=== PATIENT | male | born 1990 | race American Indian/Alaskan Native ===

== ENCOUNTER 2017-04-25 15:43 | Emergency (ER) | payer MEDICAID ==
[2017-04-25 16:06] VITALS: BP 131/50; PULSE 66; RESP 20; TEMP 98; O2SAT 100
[2017-04-25] MEDS ORDERED: Alum-Mag Hydrox-Simethicone Susp (30 mL) PO STA (17:50)
[2017-04-25] MEDS ORDERED: Alum-Mag Hydrox-Simethicone Susp (30 mL) ONE (17:57)
--- NOTE | 2017-04-25 18:04 | ED PDOC ---
HPI: Abdomen Time Seen by Provider: 04/25/17 17:30 Chief Complaint (Nursing): Abdominal Pain Chief Complaint (Provider): Abdominal Pain History Per: Patient History/Exam Limitations: no limitations Onset/Duration Of Symptoms: Days (x 1 year), Intermittent Episodes Current Symptoms Are (Timing): Still Present Additional Complaint(s): 27 year old male who presents to the ED complaining of abdominal pain, onset 1 year. He reports the last 2 weeks the pain has been worsening. Patient reports the pain is burning in his epigastric region and radiates to left upper quadrant of his abdomen. He has taken Pepto Bismol intermittently with minimal relief. The pain is intermittent and is sometimes associated with non-bilious non bloody vomiting. The timing of the vomiting varies, sometimes it is first thing in the morning and other times it is right after he eats. Vomiting occurs once or twice every couple of weeks. He came to the ED today because the pain was so bad that he had to call out of work. Patient denies fever, diarrhea and weight loss. PMD: none Past Medical History Reviewed: Historical Data, Nursing Documentation, Vital Signs Vital Signs: Last Vital Signs Temp 98 F 04/25/17 16:02 Pulse 66 04/25/17 16:02 Resp 20 04/25/17 16:02 BP 131/50 L 04/25/17 16:02 Pulse Ox 100 04/25/17 19:38 - Medical History PMH: Asthma (child) - Surgical History Other surgeries: Jaw fracture repair - Family History Family History: States: Other Other Family History: Gastritis - Social History Current smoker - smoking cessation education provided: Yes Alcohol: Social Drugs: Cannabis - Home Medications Home Medications: Ambulatory Orders Medication Instructions Recorded Dicyclomine [Bentyl] 20 mg PO BID PRN #30 tab 04/25/17 Omeprazole Magnesium [Prilosec Otc] 20 mg PO DAILY #30 tcp 04/25/17 Ondansetron ODT [Zofran ODT] 1 odt PO Q6 PRN #20 odt 04/25/17 - Allergies Allergies/Adverse Reactions: Allergies Allergy/AdvReac Type Severity Reaction Status Date / Time No Known Allergies Allergy Verified 04/25/17 16:02 Review of Systems ROS Statement: Except As Marked, All Systems Reviewed And Found Negative (as per HPI) Constitutional: Negative for: Fever, Weight loss Cardiovascular: Positive for: Chest Pain Gastrointestinal: Positive for: Vomiting (intermittent; non-bilious, non-bloody) . Negative for: Diarrhea Physical Exam - Reviewed Nursing Documentation Reviewed: Yes Vital Signs Reviewed: Yes - Physical Exam Appears: Positive for: Non-toxic, No Acute Distress Head Exam: Positive for: ATRAUMATIC, NORMOCEPHALIC Skin: Positive for: Warm, Dry Eye Exam: Positive for: EOMI, PERRL ENT: Negative for: Pharyngeal Erythema, Tonsillar Exudate Neck: Positive for: Painless ROM, Supple Cardiovascular/Chest: Positive for: Regular Rate, Rhythm, Chest Non Tender Respiratory: Positive for: Normal Breath Sounds. Negative for: Wheezing Gastrointestinal/Abdominal: Positive for: Bowel Sounds, Soft. Negative for: Tenderness, Mass, Distended, Guarding, Rebound Back: Positive for: Normal Inspection. Negative for: Decreased ROM Extremity: Positive for: Normal ROM. Negative for: Deformity Lymphatic: Negative for: Adenopathy Neurologic/Psych: Positive for: Alert. Negative for: Motor/Sensory Deficits - Laboratory Results Result Diagrams: 04/25/17 18:26 04/25/17 18:26 - ECG O2 Sat by Pulse Oximetry: 100 (RA) Pulse Ox Interpretation: Normal Medical Decision Making Medical Decision Making: Time: 17:54 Impression: abdominal pain Differential diagnoses include but are not limited to Gastritis, peptic ulcer disease, pancreatitis and hepatitis Initial Plan: --CMP --Lipase --CBC with differentials --Partial Thromboplastin Time --Prothrombin Time --Lidocaine 2% 10 ml PO --Maalox Plus 30 ml --Pepcid 40 mg PO Time: 19:27 --Patient tolerated PO food well. Reports that he feels better. Labs show no abnormalities. Patient is eager to go home. Scribe Attestation: Documented by Clarisse Dominguez, acting as a scribe for Maia Ang MD Provider Scribe Attestation: All medical record entries made by the Scribe were at my direction and personally dictated by me. I have reviewed the chart and agree that the record accurately reflects my personal performance of the history, physical exam, medical decision making, and the department course for this patient. I have also personally directed, reviewed, and agree with the discharge instructions and disposition Disposition - Clinical Impression Clinical Impression: Abdominal pain - Disposition Referrals: [facility] [Outside] Disposition: Routine/Home Disposition Time: 19:22 Condition: GOOD Additional Instructions: TAKE PRILOSEC EVERY DAY TAKE ZOFRAN NEEDED FOR NAUSEA AND BENTYL NEEDED FOR PAIN FOLLOW UP WITH CLINIC IN 1-2 WEEKS Prescriptions: Dicyclomine [Bentyl] 20 mg PO BID PRN #30 tab PRN Reason: abdominal pain Omeprazole Magnesium [Prilosec Otc] 20 mg PO DAILY #30 tcp Ondansetron ODT [Zofran ODT] 1 odt PO Q6 PRN #20 odt PRN Reason: Nausea/Vomiting Instructions: Epigastric Pain (ED) Forms: [facility] ED School/Work Excuse
[2017-04-25 18:40] LABS: BASO % 0.4 % (0.0-2.0); EOS # 0.2 K/uL (0.0-0.7); EOS % 2.6 % (0.0-4.0); HEMOGLOBIN 13.7 g/dL (12.0-18.0); LYMPH # 2.1 K/uL (1.0-4.3); LYMPH % 23.3 % (20.0-40.0); MEAN CELL VOLUME 94.8 fl (80.0-94.0); MEAN CORPUSCULAR HEMOGLOBIN 30.7 pg (27.0-31.0); MEAN CORPUSCULAR HGB CONC 32.4 g/dL (33.0-37.0); MEAN PLATELET VOLUME 8.7 fl (7.2-11.7); MONO # 0.7 K/uL (0.0-0.8); MONO % 7.2 % (0.0-10.0); NEUT % 66.5 % (50.0-75.0); RBC 4.46 Mil/uL (4.40-5.90)
[2017-04-25 18:58] LABS: ALB/GLOB RATIO 1.4 (1.0-2.1); ALBUMIN 4.5 g/dL (3.5-5.0); ALT/SGPT 48 U/L (21-72); AST/SGOT 36 U/L (17-59); BLOOD UREA NITROGEN 14 mg/dl (9-20); CALCIUM 9.6 mg/dL (8.4-10.2); GFR AFRICAN-AMERICAN > 60; GFR NON-AFRICAN AMERICAN > 60; LIPASE 76 U/L (23-300)
[2017-04-25 19:33] LABS: INR 1.1 (0.9-1.2); PARTIAL THROMBOPLASTIN TIME 30.9 Seconds (25.6-37.1); PROTHROMBIN TIME 12.7 Seconds (9.8-13.1)
== END 2017-04-25 19:40 | disposition home or self-care (01) ==
LOC: H.ER 15:43
DX: R10.9 Unspecified abdominal pain (principal); J45.909 Unspecified asthma, uncomplicated

== ENCOUNTER 2017-05-21 18:14 | Emergency (ER) | payer MEDICAID ==
[2017-05-21 18:22] VITALS: BP 127/77; PULSE 91; RESP 20; TEMP 98.5; O2SAT 99
--- NOTE | 2017-05-21 18:47 | ED PDOC ---
HPI: Headache Time Seen by Provider: 05/21/17 18:36 Chief Complaint (Nursing): Headache Chief Complaint (Provider): Headache History Per: Patient History/Exam Limitations: no limitations Onset/Duration Of Symptoms: Days (x2 days) Current Symptoms Are (Timing): Still Present Additional Complaint(s): 27 year old male presents to the emergency department with a complaint of a left -sided headache and nasal pain x2 days. Describes the pain as sharp. Reports taking DayQuil without relief. Denies fever or chills. Past Medical History Reviewed: Historical Data, Nursing Documentation, Vital Signs Vital Signs: Last Vital Signs Temp 98.5 F 05/21/17 18:20 Pulse 91 H 05/21/17 18:20 Resp 20 05/21/17 18:20 BP 127/77 05/21/17 18:20 Pulse Ox 99 05/21/17 18:20 - Medical History PMH: Asthma (child) - Surgical History Surgical History: No Surg Hx - Family History Family History: States: Unknown Family Hx - Social History Current smoker - smoking cessation education provided: No Alcohol: None Drugs: Denies - Home Medications Home Medications: Ambulatory Orders Medication Instructions Recorded Dicyclomine [Bentyl] 20 mg PO BID PRN #30 tab 04/25/17 Omeprazole Magnesium [Prilosec Otc] 20 mg PO DAILY #30 tcp 04/25/17 Ondansetron ODT [Zofran ODT] 1 odt PO Q6 PRN #20 odt 04/25/17 Guaifen/Phenyleph/Acetaminophn 1 tab PO BID #14 tab 05/21/17 [Mucinex Fast-Max Cold & Sinus 325 mg-200 mg-5] - Allergies Allergies/Adverse Reactions: Allergies Allergy/AdvReac Type Severity Reaction Status Date / Time No Known Allergies Allergy Verified 04/25/17 16:02 Review of Systems ROS Statement: Except As Marked, All Systems Reviewed And Found Negative (As per HPI, otherwise negative) Constitutional: Negative for: Fever, Chills ENT: Positive for: Nose Pain (Nasal area) Neurological: Positive for: Headache (Left-sided) Physical Exam - Reviewed Nursing Documentation Reviewed: Yes Vital Signs Reviewed: Yes - Physical Exam Appears: Positive for: Non-toxic, No Acute Distress Head Exam: Positive for: ATRAUMATIC, NORMAL INSPECTION, NORMOCEPHALIC Skin: Positive for: Normal Color, Warm, Dry ENT: Positive for: Normal ENT Inspection, Pharynx Is (Clear), TM Is/Are (Clear) . Negative for: Pharyngeal Erythema Cardiovascular/Chest: Positive for: Regular Rate, Rhythm. Negative for: Murmur Respiratory: Positive for: Normal Breath Sounds. Negative for: Decreased Breath Sounds, Accessory Muscle Use, Respiratory Distress Neurologic/Psych: Positive for: Alert, Oriented (x3), Cerebellar Tests (Normal) , Gait (Steady). Negative for: Facial Droop - ECG O2 Sat by Pulse Oximetry: 99 (RA) Pulse Ox Interpretation: Normal Medical Decision Making Medical Decision Making: Time: 1844 Initial impression: Sinusitis Initial plan: --Evaluation Time: 1849 Upon evaluation patient is medically stable, and requires no treatment in the ED at this time. Patient will be discharged home with Rx for Mucinex Fast-Max Cold & Sinus 325 mg. Counseling was provided and all questions were answered regarding diagnosis and need for follow up with primary care doctor. There is agreement to discharge plan. Return if symptoms persist or worsen. Clinical Impression: Sinus Pressure Scribe Attestation: Documented by Leonila Liu, acting as a scribe for Vanessa Espinal PA-C Provider Scribe Attestation: All medical record entries made by the Scribe were at my direction and personally dictated by me. I have reviewed the chart and agree that the record accurately reflects my personal performance of the history, physical exam, medical decision making, and the department course for this patient. I have also personally directed, reviewed, and agree with the discharge instructions and disposition. Disposition - Clinical Impression Clinical Impression: Sinus pressure - Patient ED Disposition Is Patient to be Admitted: No Counseled Patient/Family Regarding: Diagnosis, Need For Followup, Rx Given - Disposition Disposition: Routine/Home Disposition Time: 18:50 Condition: STABLE Prescriptions: Guaifen/Phenyleph/Acetaminophn [Mucinex Fast-Max Cold & Sinus 325 mg-200 mg-5] 1 tab PO BID #14 tab Instructions: Rhinosinusitis (ED) Forms: [employer] (Persian), [facility] ED School/Work Excuse
== END 2017-05-21 18:53 | disposition home or self-care (01) ==
LOC: H.ER 18:14
DX: J32.9 Chronic sinusitis, unspecified (principal); J45.909 Unspecified asthma, uncomplicated

== ENCOUNTER 2017-05-27 10:51 | Emergency (ER) | payer MEDICAID ==
[2017-05-27 10:55] VITALS: BP 132/84; PULSE 80; TEMP 97; O2SAT 100; BMI 23.3
--- NOTE | 2017-05-27 13:37 | ED PDOC ---
Lower Extremity Pain/Injury Time Seen by Provider: 05/27/17 11:14 Chief Complaint (Nursing): Lower Extremity Problem/Injury Chief Complaint (Provider): Intermittent left knee pain, worse today History Per: Patient History/Exam Limitations: no limitations Onset/Duration Of Symptoms: Days Current Symptoms Are (Timing): Still Present Severity: Moderate Pain Scale Rating Of: 7 Additional Complaint(s): PT states being unsteady in the snow yesterday made the pain worse. PT has not taken anything for the pain,. Pt has not see a provider regarding knee pain. Pt reports feeling like somethign is stuck in his knee when he tries to bend it. Past Medical History Reviewed: Historical Data, Nursing Documentation, Vital Signs Vital Signs: Last Vital Signs Temp 97 F L 05/27/17 10:54 Pulse 80 05/27/17 10:54 Resp BP 132/84 05/27/17 10:54 Pulse Ox 100 05/27/17 10:54 - Medical History PMH: Asthma (child) - Surgical History Surgical History: No Surg Hx - Family History Family History: States: Unknown Family Hx - Living Arrangements Living Arrangements: With Family - Social History Current smoker - smoking cessation education provided: No - Home Medications Home Medications: Ambulatory Orders Medication Instructions Recorded Dicyclomine [Bentyl] 20 mg PO BID PRN #30 tab 04/25/17 Omeprazole Magnesium [Prilosec Otc] 20 mg PO DAILY #30 tcp 04/25/17 Ondansetron ODT [Zofran ODT] 1 odt PO Q6 PRN #20 odt 04/25/17 Guaifen/Phenyleph/Acetaminophn 1 tab PO BID #14 tab 05/21/17 [Mucinex Fast-Max Cold & Sinus 325 mg-200 mg-5] Ibuprofen [Motrin Tab] 800 mg PO Q6H PRN #20 tab 05/27/17 - Allergies Allergies/Adverse Reactions: Allergies Allergy/AdvReac Type Severity Reaction Status Date / Time No Known Allergies Allergy Verified 04/25/17 16:02 Review of Systems ROS Statement: Except As Marked, All Systems Reviewed And Found Negative Musculoskeletal: Positive for: Leg Pain Physical Exam - Reviewed Nursing Documentation Reviewed: Yes Vital Signs Reviewed: Yes - Physical Exam Appears: Positive for: Well, Non-toxic, No Acute Distress Head Exam: Positive for: ATRAUMATIC, NORMAL INSPECTION, NORMOCEPHALIC Skin: Positive for: Normal Color, Warm, DRY Eye Exam: Positive for: Normal appearance ENT: Positive for: Normal ENT Inspection Neck: Positive for: Normal, Painless ROM Respiratory: Negative for: Accessory Muscle Use, Respiratory Distress Pulses-Dorsalis Pedis (L): 2+ Pulses-Dorsalis Pedis (R): 2+ Pulses-Post. Tibialis (L): 2+ Pulses-Post. Tibialis (R): 2+ Back: Positive for: Normal Inspection Extremity: Positive for: Other ((-) anterior/posterior drawer, (-) McMurrys ). Negative for: Normal ROM (Decreased left knee flexion due to pain), Tenderness, Deformity, Swelling Neurologic/Psych: Positive for: Alert, Oriented - ECG O2 Sat by Pulse Oximetry: 100 Medical Decision Making Medical Decision Making: x-ray without acute findings Disposition - Clinical Impression Clinical Impression: Knee pain - Patient ED Disposition Is Patient to be Admitted: No Counseled Patient/Family Regarding: Diagnosis, Need For Followup, Rx Given - Disposition Referrals: Otoniel Smith MD [Staff Provider] - Disposition: Routine/Home Disposition Time: 13:32 Condition: GOOD Prescriptions: Ibuprofen [Motrin Tab] 800 mg PO Q6H PRN #20 tab PRN Reason: Pain Instructions: Knee Pain (ED) Forms: [employer] (Khmer), [facility] ED School/Work Excuse
--- NOTE | 2017-05-27 14:11 | RAD ---
PROCEDURE: Left Knee Radiographs. HISTORY: Pain. COMPARISON: Left knee radiographs 09/29/2013. FINDINGS: BONES: No acute fracture or destructive bony lesion identified. JOINTS: Normal. No osteoarthritis. JOINT EFFUSION: None. OTHER FINDINGS: None. IMPRESSION: Normal radiographs of the left knee. No significant interval change appreciated. Consider follow-up MRI if symptoms persist or worsen or as otherwise may be indicated.
== END 2017-05-27 13:45 | disposition home or self-care (01) ==
LOC: H.ER 10:51
DX: M25.562 Pain in left knee (principal); J45.909 Unspecified asthma, uncomplicated

== ENCOUNTER 2018-08-04 18:01 | Emergency (ER) | payer MEDICAID ==
[2018-08-04 18:01] VITALS: BMI 23.3
[2018-08-04 18:10] VITALS: RESP 18
--- NOTE | 2018-08-04 19:27 | ED PDOC ---
HPI: Abdomen Time Seen by Provider: 08/04/18 18:19 Chief Complaint (Nursing): Abdominal Pain Chief Complaint (Provider): Abdominal Pain History Per: Patient History/Exam Limitations: no limitations Onset/Duration Of Symptoms: Days (x2) Current Symptoms Are (Timing): Still Present Additional Complaint(s): 28 y/o male with no significant PMHx presents to the ED for evaluation of abdominal pain, onset two days ago. Patient states that for the past two days, he has been experiencing diffuse abdominal pain associated with urinary hesitancy and constipation. Patient reports his last bowel movement was earlier today. Patient describes bowel movement as very hard and small. Otherwise, patient denies nausea, vomiting, diarrhea, penile discharge, dysuria, back pain, fever, chills and previous abdominal surgeries. PMD: none provided Past Medical History Reviewed: Historical Data, Nursing Documentation, Vital Signs Vital Signs: Last Vital Signs Temp 98.4 F 08/04/18 18:06 Pulse 68 08/04/18 18:06 Resp 18 08/04/18 18:06 BP 131/77 08/04/18 18:06 Pulse Ox 97 08/04/18 18:06 - Medical History PMH: Asthma (child) - Surgical History Surgical History: No Surg Hx - Family History Family History: States: Unknown Family Hx - Home Medications Home Medications: Ambulatory Orders Medication Instructions Recorded Dicyclomine [Bentyl] 20 mg PO BID PRN #30 tab 04/25/17 Omeprazole Magnesium [Prilosec Otc] 20 mg PO DAILY #30 tcp 04/25/17 Ondansetron ODT [Zofran ODT] 1 odt PO Q6 PRN #20 odt 04/25/17 Guaifen/Phenyleph/Acetaminophn 1 tab PO BID #14 tab 05/21/17 [Mucinex Fast-Max Cold & Sinus 325 mg-200 mg-5] Ibuprofen [Motrin Tab] 800 mg PO Q6H PRN #20 tab 05/27/17 - Allergies Allergies/Adverse Reactions: Allergies Allergy/AdvReac Type Severity Reaction Status Date / Time No Known Allergies Allergy Verified 08/04/18 18:05 Review of Systems ROS Statement: Except As Marked, All Systems Reviewed And Found Negative Constitutional: Negative for: Fever, Chills Gastrointestinal: Positive for: Abdominal Pain. Negative for: Nausea, Vomiting, Diarrhea, Constipation Genitourinary Male: Positive for: Other (urinary hesitancy). Negative for: Dysuria, Penile Discharge Musculoskeletal: Negative for: Back Pain Physical Exam - Reviewed Nursing Documentation Reviewed: Yes Vital Signs Reviewed: Yes - Physical Exam Appears: Positive for: No Acute Distress Skin: Positive for: Normal Color Eye Exam: Positive for: Normal appearance Neck: Positive for: Normal Cardiovascular/Chest: Positive for: Regular Rate, Rhythm. Negative for: Murmur Respiratory: Positive for: Normal Breath Sounds. Negative for: Respiratory Distress Gastrointestinal/Abdominal: Positive for: Normal Exam, Bowel Sounds, Soft. Negative for: Tenderness, Distended Back: Positive for: Normal Inspection. Negative for: L CVA Tenderness, R CVA Tenderness Extremity: Positive for: Normal ROM. Negative for: Deformity Neurological/Psych: Positive for: Awake, Alert, Oriented (x3) - ECG O2 Sat by Pulse Oximetry: 97 (RA) Pulse Ox Interpretation: Normal Medical Decision Making Medical Decision Making: Time: 1829 Impression: Abdominal Pain Plan: -- CMP -- Lipase -- CBC with Differentials -- Obstructive Series -- IV Insertion -- Urinalysis Scribe Attestation: Documented by Radha Noel, acting as a scribe Luis Tim PA-C. Provider Scribe Attestation: All medical record entries made by the Scribe were at my direction and personally dictated by me. I have reviewed the chart and agree that the record accurately reflects my personal performance of the history, physical exam, medical decision making, and the department course for this patient. I have also personally directed, reviewed, and agree with the discharge instructions and disposition. Disposition - Clinical Impression Clinical Impression: Abdominal pain - Patient ED Disposition Is Patient to be Admitted: Transfer of Care (Signed out to Kulwinder SELF pending lab results and re-evaluation.) - Disposition Disposition Time: 20:02 Condition: FAIR Forms: [employer] (Swedish)
[2018-08-04 20:10] LABS: URINE BILIRUBIN NEGATIVE (NEGATIVE); URINE BLOOD NEGATIVE (NEGATIVE); URINE CLARITY CLEAR (Clear); URINE COLOR YELLOW (YELLOW); URINE GLUCOSE (UA) NEG (NEGATIVE); URINE LEUKOCYTE ESTERASE NEG Leu/uL (Negative); URINE PROTEIN NEGATIVE (NEGATIVE); URINE UROBILINOGEN 0.2-1.0 mg/dL (0.2-1.0)
[2018-08-04 20:13] LABS: BASO % 0.2 % (0.0-2.0); EOS # 0.2 K/uL (0.0-0.7); EOS % 2.2 % (0.0-4.0); HEMOGLOBIN 12.6 g/dL (12.0-18.0); LYMPH # 2.6 K/uL (1.0-4.3); MEAN CORPUSCULAR HEMOGLOBIN 30.6 pg (27.0-31.0); MEAN CORPUSCULAR HGB CONC 32.2 g/dL (33.0-37.0); MEAN PLATELET VOLUME 9.3 fl (7.2-11.7); MONO # 0.7 K/uL (0.0-0.8); MONO % 6.4 % (0.0-10.0); NEUT # 7.2 K/uL (1.8-7.0); NEUT % 67.2 % (50.0-75.0); RBC 4.1 Mil/uL (4.40-5.90); RED CELL DISTRIBUTION WIDTH 12.9 % (11.5-14.5); WHITE BLOOD COUNT 10.7 K/uL (4.8-10.8)
[2018-08-04 20:18] LABS: ALB/GLOB RATIO 1.3 (1.0-2.1); ALBUMIN 4.2 g/dL (3.5-5.0); ALT/SGPT 35 U/L (21-72); AST/SGOT 30 U/L (17-59); BLOOD UREA NITROGEN 24 mg/dl (9-20); CALCIUM 9.7 mg/dL (8.4-10.2); GFR NON-AFRICAN AMERICAN > 60; LIPASE 91 U/L (23-300)
--- NOTE | 2018-08-04 20:25 | ED PDOC ---
- Laboratory Results Result Diagrams: 08/04/18 19:40 08/04/18 19:40 Lab Results: Total Bilirubin 0.2 mg/dl (0.2-1.3) 08/04/18 19:40 AST 30 U/L (17-59) 08/04/18 19:40 ALT 35 U/L (21-72) 08/04/18 19:40 Alkaline Phosphatase 58 U/L (38-126) 08/04/18 19:40 Total Protein 7.4 G/DL (6.3-8.2) 08/04/18 19:40 Albumin 4.2 g/dL (3.5-5.0) 08/04/18 19:40 Globulin 3.2 gm/dL (2.2-3.9) 08/04/18 19:40 Albumin/Globulin Ratio 1.3 (1.0-2.1) 08/04/18 19:40 Lipase 91 U/L (23-300) 08/04/18 19:40 - ECG O2 Sat by Pulse Oximetry: 97 (RA) - Progress ED Course And Treament: Patient re-examinated at 21:03pm Patient feels improved. States he has had a few days of constipation/lower abd pain UA reviewed wnl. Disposition - Clinical Impression Clinical Impression: Abdominal pain - POA Present On Arrival: None - Disposition Disposition: Routine/Home Disposition Time: 21:04 Condition: FAIR Prescriptions: Docusate Sodium [Colace] 100 mg PO BID #6 capsule Instructions: Acute Abdomen (Belly Pain), High Fiber Diet Forms: [facility] ED School/Work Excuse
[2018-08-04 21:32] VITALS: BP 140/82; PULSE 74; TEMP 97.8; O2SAT 98
--- NOTE | 2018-08-05 08:55 | RAD ---
Date of service: 08/04/2018 PROCEDURE: Radiographs of the chest and abdomen (obstructive series) HISTORY: abdominal pain COMPARISON: No prior. TECHNIQUE: AP radiograph of the chest, with upright and supine radiographs of the abdomen. FINDINGS: CHEST: Lungs: Clear. Cardiovascular: Normal size heart. No pulmonary vascular congestion. No aortic atherosclerotic calcification present Pleura: No pleural fluid. No pneumothorax. Other findings: None. ABDOMEN AND PELVIS: Bowel: Unremarkable bowel gas pattern. No evidence of mechanical obstruction. Free air: None. Bones: Unremarkable. Other findings: None. IMPRESSION: Unremarkable radiographs of chest and abdomen. No evidence of mechanical bowel obstruction.
== END 2018-08-04 21:29 | disposition home or self-care (01) ==
LOC: H.ER 18:01
DX: R10.9 Unspecified abdominal pain (principal); K59.00 Constipation, unspecified